=== PATIENT | female | born 1930 | race Caucasian/White ===

== ENCOUNTER 2018-05-21 05:00 | Day surgery (SDC) | payer OTHER, BC ==
[2018-05-20 15:46] VITALS: BMI 33.1
[2018-05-21 06:28] VITALS: TEMP 97.6
[2018-05-21] MEDS ORDERED: methylPREDNISolone ACET (DEPO) 80 MG/1 ML VIAL ONE (07:24)
[2018-05-21] MEDS ORDERED: BUPIVACAINE HCL/PF 0.25% (2.5MG/ML) 10 ML VIAL ONE (07:24)
[2018-05-21] MEDS ORDERED: SUCCINYLCHOLINE CHLORIDE 200 MG/10 ML VIAL ONE (07:45)
[2018-05-21] MEDS ORDERED: PROPOFOL 20 ML ONE (07:45)
[2018-05-21] MEDS ORDERED: LIDOCAINE HCL 1% PRESERVATIVE FREE - 30ML VIAL IJ ONE (07:55)
[2018-05-21] MEDS ORDERED: methylPREDNISolone ACET (DEPO) 80 MG/1 ML VIAL IJ ONE (07:55)
[2018-05-21] MEDS ORDERED: BUPIVACAINE HCL/PF 0.25% (2.5MG/ML) 10 ML VIAL IJ ONE (07:55)
--- NOTE | 2018-05-21 08:42 | OP ---
DATE OF OPERATION: 05/21/2018 PREOPERATIVE DIAGNOSIS: L5-S1 stenosis with back pain, lumbar radiculopathy. POSTOPERATIVE DIAGNOSIS: L5-S1 stenosis with back pain, lumbar radiculopathy. ATTENDING SURGEON: Venancio Benavides MD PROCEDURE: 1. Right L5-S1 epidural steroid injection. 2. Intraoperative fluoroscopy. ANESTHESIA: Local with IV sedation. ANESTHESIOLOGIST: Keri Rosa MD INDICATION: The patient is an 88-year-old female with intractable back pain, lumbar radiculopathy. Because of intractable symptoms and failure of conservative treatment, she is here for second epidural steroid injection. The risks of the procedure include but are not limited to bleeding, infection, spinal headache and neurological injury. The patient understands the indications for the procedure, the procedure in detail, risks and benefits and alternatives for treatment of her lumbar condition and wished to proceed. No guarantees were given for a favorable outcome. PROCEDURE IN DETAIL: After the patient was taken to the operating room, she was placed in a prone position with a pillow under her hips. The lumbar region was cleaned with alcohol and prepped with Betadine. Skin wheal was raised with 5 mL of 1% Xylocaine. A 22-gauge spinal needle was inserted under AP fluoroscopic guidance from a right-sided approach to L5-S1. The center of spinal canal was reached. Loss of resistance technique was utilized and there was no CSF or blood backflow. Depo-Medrol 80 mg and 1 mL of 0.25% Marcaine was injected. The needle was withdrawn and sterile bandage was applied. The patient tolerated the procedure well and was turned back to the supine position, moving bilateral lower extremities well. She did not complain of headache. VENANCIO BENAVIDES M.D. [id number]
[2018-05-21 10:42] VITALS: BP 146/70; PULSE 60
== END 2018-05-21 09:25 | disposition home or self-care (01) ==
LOC: JASU-SURG 05:00
PROVIDERS: ATTEND Neurological Surgery
PROC: 3E0R3BZ Introduction of Anesthetic Agent into Spinal Canal, Percutaneous Approach (ICD-10-PCS; 2018-05-21)
PROC: B01BZZZ Fluoroscopy of Spinal Cord (ICD-10-PCS; 2018-05-21)
PROC: 3E0R33Z Introduction of Anti-inflammatory into Spinal Canal, Percutaneous Approach (ICD-10-PCS; principal; 2018-05-21 07:30)
DX: M48.061 Spinal stenosis, lumbar region without neurogenic claudication (principal); M54.5 Low back pain; M54.16 Radiculopathy, lumbar region
CPT/HCPCS: 76000-TC-FY

== ENCOUNTER 2019-08-08 22:42 | Emergency (ER) | payer OTHER, BC ==
[2019-08-08 23:00] VITALS: BMI 28.3
--- NOTE | 2019-08-08 23:02 | PDOC ---
History of Present Illness - General History Source: Patient Exam Limitations: No Limitations - History of Present Illness Initial Comments: 08/08/19 23:01 Pauline Lam is an 89F with PMH HTN, HLD, [place] in 1998, CAD s/p stent in 2002 on ASA/Plavix, presenting with hypertension. Patient woke up this morning at 4AM and felt off, is not able to describe the sensation. Took her BP and found it to be elevated, went to the restroom and felt better. Went about her day, went to lunch, got her hair done, went to [employer], ate dinner. Went to bed at 8PM but was awakened by this same whole-body sensation, EMS called. BP in ambulance 220/110, did not give any medications. Patient denies chest pain, SOB, palpitations, BELLO, dizziness, changes to vision, weakness, LOC. Denies history of thyroid disease or renal disease. Has known history of [place] and CAD s/p stents, does not report that this presentation is similar to her prior ACS. One prior episode of this in the past, was seen by mechanical specialist Dr. Mendez and her medications were changed. Cardiac medications include Losartan 165mg, Troprol 100mg, ASA 81mg, Plavix 75. Has been taking medications regularly, denies high sodium diet. Normal BP 140/90. Denies fever, chills, nausea, vomiting, constipation, diarrhea. <Dain Belle - Last Filed: 08/09/19 00:29> <Isaiah Warner - Last Filed: 08/09/19 01:53> - General Chief Complaint: Blood Pressure Problem Stated Complaint: HIGH BLOOD PRESSURE, HYPERTENSION Time Seen by Provider: 08/08/19 23:01 Past History - Past Medical History Anemia: No Asthma: No Cancer: No Cardiac Disorders: Yes (IN, DOUBLE BYPASS, STENTS.) CVA: No COPD: No CHF: No Dementia: No Diabetes: No GI Disorders: Yes (REFLUX, DIVERTICULOSIS) Disorders: No HTN: Yes Hypercholesterolemia: Yes Liver Disease: No Seizures: No Thyroid Disease: No - Surgical History Abdominal Surgery: Yes Appendectomy: Yes Cardiac Surgery: Yes (bypass, stent x 2) Cholecystectomy: No Lung Surgery: No Neurologic Surgery: No Orthopedic Surgery: No - Psycho Social/Smoking Cessation Hx Smoking Status: No Smoking History: Never smoked Have you smoked in the past 12 months: No Number of Cigarettes Smoked Daily: 0 Information on smoking cessation initiated: No Hx Alcohol Use: No Drug/Substance Use Hx: No Substance Use Type: None Hx Substance Use Treatment: No <Dain Belle - Last Filed: 08/09/19 00:29> <Isaiah Warner - Last Filed: 08/09/19 01:53> - Past Medical History Allergies/Adverse Reactions: Allergies Allergy/AdvReac Type Severity Reaction Status Date / Time Penicillins Allergy Rash Verified 08/08/19 22:59 Home Medications: Ambulatory Orders Ezetimibe [Zetia] 10 mg PO HS 09/26/13 Aspirin [ASA -] 81 mg PO DAILY tab.chew 05/14/16 Atorvastatin Ca [Lipitor] 10 mg PO HS #0 tablet 05/14/16 Cholecalciferol (Vitamin D3) [Vitamin D3 -] 2,000 unit PO DAILY tab 05/14/16 Clopidogrel Bisulfate [Plavix -] 75 mg PO MoWeFr@1000 tablet 05/14/16 Metoprolol Succinate [Toprol XL -] 100 mg PO DAILY tab.sr.24h 05/14/16 Ranitidine [Zantac -] 150 mg PO BID tablet 05/14/16 Ranolazine [Ranexa -] 500 mg PO BID 09/10/16 Aspirin [Aspirin EC] 81 mg PO DAILY 05/20/18 Losartan Potassium 100 mg PO DAILY 05/20/18 Review of Systems - Review of Systems Able to Perform ROS?: Yes Constitutional: No: Symptoms Reported HEENTM: No: Eye Pain, Blurred Vision, Recent change in vision, Ear Pain, Throat Swelling, Mouth Swelling Respiratory: No: Cough, Shortness of Breath, Wheezing, Productive cough Cardiac (ROS): No: Chest Pain, Edema, Irregular Heart Rate, Lightheadedness, Palpitations, Syncope, Chest Tightness ABD/GI: No: Constipated, Diarrhea, Nausea, Vomiting : No: Symptoms Reported Musculoskeletal: No: Symptoms Reported Integumentary: No: Symptoms Reported Neurological: No: Headache, Numbness, Paresthesia, Tingling, Tremors, Weakness, Unsteady Gait, Ataxia, Dizziness Psychiatric: No: Stressors Endocrine: No: Intolerance to Cold, Intolerance to Heat Hematologic/Lymphatic: No: Symptoms Reported All Other Systems: Reviewed and Negative <Dain Belle - Last Filed: 08/09/19 00:29> *Physical Exam - Vital Signs Last Vital Signs Temp Pulse Resp BP Pulse Ox 97.6 F 76 20 196/99 H 98 08/08/19 22:59 08/08/19 22:59 08/08/19 22:59 08/08/19 22:59 08/08/19 22:59 - Physical Exam General Appearance: Yes: Nourished, Appropriately Dressed. No: Apparent Distress HEENT: positive: EOMI, JESUS, Normal Voice, Symmetrical, Pharynx Normal, Hearing Grossly Normal. negative: Scleral Icterus (R), Scleral Icterus (L) Neck: positive: Normal Thyroid, Rigid, Supple. negative: Tender, Lymphadenopathy (R), Lymphadenopathy (L) Respiratory/Chest: positive: Lungs Clear, Normal Breath Sounds. negative: Chest Tender, Respiratory Distress, Accessory Muscle Use, Crackles, Rhonchi, Stridor, Wheezing Cardiovascular: positive: Regular Rhythm, Regular Rate, Edema. negative: Murmur Gastrointestinal/Abdominal: positive: Normal Bowel Sounds, Flat, Soft. negative : Tender, Hernia Musculoskeletal: positive: Normal Inspection. negative: CVA Tenderness Extremity: positive: Normal Capillary Refill, Normal Inspection, Normal Range of Motion. 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 director II-XII NML intact, Fully Oriented, Alert, Normal Mood/ Affect, Normal Response <Dain Belle - Last Filed: 08/09/19 00:29> - Vital Signs Last Vital Signs Temp Pulse Resp BP Pulse Ox 97.5 F L 72 17 158/77 97 08/08/19 23:25 08/08/19 23:25 08/08/19 23:10 08/08/19 23:25 08/08/19 23:25 <Isaiah Warner - Last Filed: 08/09/19 01:53> ED Treatment Course - LABORATORY CBC & Chemistry Diagram: 08/09/19 00:45 08/09/19 00:45 - ADDITIONAL ORDERS Additional order review: Laboratory Results 08/09/19 00:45 Sodium 138 Potassium 4.5 Chloride 107 Carbon Dioxide 25 Anion Gap 6 L BUN 24.7 H Creatinine 1.0 Est GFR (CKD-EPI)AfAm 58.66 Est GFR (CKD-EPI)NonAf 50.61 Random Glucose 94 Calcium 9.3 Total Bilirubin 0.6 AST 23 ALT 32 Alkaline Phosphatase 67 Creatine Kinase 135 Troponin I < 0.02 Total Protein 7.2 Albumin 4.0 08/09/19 00:45 RBC 4.15 MCV 96.4 H MCHC 33.4 RDW 13.7 MPV 7.3 L Neutrophils % 62.7 Lymphocytes % 25.0 Monocytes % 9.6 Eosinophils % 2.2 Basophils % 0.5 <Isaiah Warner - Last Filed: 08/09/19 01:53> Medical Decision Making - Medical Decision Making 08/08/19 23:01 Pauline Lam is an 89F with PMH HTN, HLD, [place] in 1998, CAD s/p stent in 2002 on ASA/Plavix, presenting with hypertension. Patient presents with hypertension above her normal, with an unusual sensation she cannot quantify, but denies chest pain, SOB, BELLO, palpitations, or other common cardiac complaints. Patient is A/O x3, no concerning findings for CVA. Left arm BP 182/92, right arm BP 179/141, no chest pain, concern for aortic dissection low. Concerned for hypertensive urgency, will evaluate for end-organ damage including IN via: CMP CBC CP ECG CXR BP down to 158/77 without intervention. No need for medications at this time. Will continue to re-assess BP. Signed out to Dr. Alexis. [] Labs [] CXR [X] ECG ECG shows NSR with sinus arrhythmia, HR 70, QTc 425, no ischemic changes or TWI. <Dain Belle - Last Filed: 08/09/19 00:29> Discharge - Discharge Information Problems reviewed: Yes <Dain Belle - Last Filed: 08/09/19 00:29> - Discharge Information Problems reviewed: Yes <Isaiah Warner - Last Filed: 08/09/19 01:53> - Discharge Information Clinical Impression/Diagnosis: Hypertensive urgency Condition: Stable Disposition: HOME - Follow up/Referral Referrals: Eb Olson [Primary Care Provider] - Elvis Alston MD [Staff Physician] - - Patient Discharge Instructions Patient Printed Discharge Instructions: DI for High Blood Pressure Additional Instructions: Today you were evaluated for high blood pressure. Although your pressure went down on its own and you did not have any concrete symptoms, we were concerned about damage to your kidneys or heart. Your blood labs show: Your chest x-ray shows: Your ECG does not show signs of a heart attack. Please continue to keep a log of your blood pressure. If it continues to be elevated over 180 for a few days, your current medications are not enough to control it, and you need to see Dr. Mendez your mechanical specialist for a change to your medications. Please see your primary doctor in the next 3 days, and your mechanical specialist in the next week for further care. If you experience headache, nausea, vomiting, chest pain, shortness of breath, abdominal pain, or any other new or concerning symptoms, please return to the emergency room.
--- NOTE | 2019-08-09 00:01 | PDOC ---
*Physical Exam - Vital Signs Last Vital Signs Temp Pulse Resp BP Pulse Ox 97.5 F L 72 20 158/77 97 08/08/19 23:25 08/08/19 23:25 08/08/19 22:59 08/08/19 23:25 08/08/19 23:25 ED Treatment Course - LABORATORY CBC & Chemistry Diagram: 08/09/19 00:45 08/09/19 00:45 Medical Decision Making - Medical Decision Making 08/09/19 00:01 sign out rcvd by noon team - labs, cxr, ekg, dispo DC'd home per ED attending Discharge - Discharge Information Problems reviewed: Yes Clinical Impression/Diagnosis: Hypertensive urgency Condition: Stable Disposition: HOME - Follow up/Referral Referrals: Eb Olson [Primary Care Provider] - Elvis Alston MD [Staff Physician] - - Patient Discharge Instructions Patient Printed Discharge Instructions: DI for High Blood Pressure Additional Instructions: Today you were evaluated for high blood pressure. Although your pressure went down on its own and you did not have any concrete symptoms, we were concerned about damage to your kidneys or heart. Your blood labs show: Your chest x-ray shows: Your ECG does not show signs of a heart attack. Please continue to keep a log of your blood pressure. If it continues to be elevated over 180 for a few days, your current medications are not enough to control it, and you need to see Dr. Mendez your hydraulic modeling engineer for a change to your medications. Please see your primary doctor in the next 3 days, and your hydraulic modeling engineer in the next week for further care. If you experience headache, nausea, vomiting, chest pain, shortness of breath, abdominal pain, or any other new or concerning symptoms, please return to the emergency room. - Post Discharge Activity
[2019-08-09 00:55] LABS: BASO % 0.5 % (0-2.0); EOS % 2.2 % (0-4.5); HEMOGLOBIN 13.3 GM/dL (10.7-15.3); MCH 32.2 pg (25.7-33.7); MCHC 33.4 g/dl (32.0-36.0); MEAN CELL VOLUME 96.4 fl (80-96); MEAN PLT VOLUME 7.3 fl (7.5-11.1); MONO % 9.6 % (3.8-10.2); NEUT % 62.7 % (42.8-82.8); PLATELET COUNT 241 K/MM3 (134-434); RBC 4.15 M/mm3 (3.60-5.2); RDW 13.7 % (11.6-15.6); WHITE BLOOD COUNT 10.5 K/mm3 (4.0-10.0)
--- NOTE | 2019-08-09 01:37 | PDOC ---
Documentation entered by Thania Ricci SCRIBE, acting as scribe for Isaiah Warner MD. Isaiah Warner MD: This documentation has been prepared by the noraibeRadhames Lincy, SCRIBE, under my direction and personally reviewed by me in its entirety. I confirm that the documentation accurately reflects all work, treatment, procedures, and medical decision making performed by me. Attending Attestation - Resident Resident Name: Dain Belle - ED Attending Attestation I have performed the following: I have examined & evaluated the patient, The case was reviewed & discussed with the resident, I agree w/resident's findings & plan, Exceptions are as noted - HPI HPI: 08/08/19 23:59 The patient is an 89-year-old female with a past medical history significant HTN , HLD, [place] (1998), CAD s/p 2 stents (on Plavix and ASA) who presents to the emergency department with an elevated blood pressure of 220/110 since 8:00 pm today. The patient states she woke up around 8:00 pm feeling off. The patient states she called EMS, who checked the patients BP, which was recorded to be elevated. Denies chest pain or shortness of breath. - Physicial Exam PE: 08/09/19 01:35 Patient is awake and alert, well-nourished, in no distress Normocephalic and atraumatic PERRLA, EOMI No JVD CTA RRR Abdomen soft, nontender, nondistended No lower extremity edema No focal neuro deficits - Medical Decision Making 08/09/19 01:35 89-year-old female with history of hypertension presents with signs and symptoms of hypertensive urgency with improving blood pressure without intervention. In the ER, patient is well-appearing without evidence of acute ischemia or focal neuro deficits. EKG reveals LVH but no evidence of acute ischemia or dysrhythmia. CBC is within normal limits. Cardiac enzymes are unremarkable. Chest x-ray reveals no evidence of cardiomegaly/infiltrate or effusion. Will obtain CMP to evaluate for renal dysfunction. If no abnormalities are identified, will discharge with outpatient cardiology follow- up. 08/09/19 01:52 Patient reassessed. Patient is asymptomatic with improving blood pressure without intervention. Last blood pressure is noted to be 127/78. I have advised the patient to continue to maintain a blood pressure log and follow-up with her ingot supervisor in 24 to 48 hours. I have advised the patient to return immediately if she develops chest pain or focal deficits. She is expressed understanding. Will discharge.
[2019-08-09 01:42] LABS: ALK PHOS 67 U/L (45-117); ANION GAP 6 MMOL/L (8-16); BILIRUBIN,TOTAL 0.6 mg/dL (0.2-1); BLOOD UREA NITROGEN 24.7 mg/dL (7-18); CALCIUM 9.3 mg/dL (8.5-10.1); CHLORIDE 107 mmol/L (98-107); CO2 25 mmol/L (21-32); GLUCOSE,RANDOM 94 mg/dL (74-106); POTASSIUM 4.5 mmol/L (3.5-5.1); SGOT/AST 23 U/L (15-37); SGPT/ALT 32 U/L (13-61); SODIUM 138 mmol/L (136-145); TOT PROT 7.2 g/dl (6.4-8.2)
[2019-08-09 02:16] VITALS: BP 158/87; PULSE 78; TEMP 97.9
--- NOTE | 2019-08-09 10:51 | EKG ---
Test Reason : Blood Pressure : / mmHG Vent. Rate : 070 BPM Atrial Rate : 070 BPM P-R Int : 192 ms QRS Dur : 088 ms QT Int : 394 ms P-R-T Axes : 099 -15 -07 degrees QTc Int : 425 ms NORMAL SINUS RHYTHM WITH SINUS ARRHYTHMIA MINIMAL VOLTAGE CRITERIA FOR LVH, MAY BE NORMAL VARIANT INFERIOR INFARCT (CITED ON OR BEFORE 10-JUN-2003) POSSIBLE ANTERIOR INFARCT (CITED ON OR BEFORE 10-JUN-2003) ABNORMAL ECG WHEN COMPARED WITH ECG OF 11-MAY-2016 16:40, NO SIGNIFICANT CHANGE WAS FOUND Confirmed by MELISSA PERALTA MD ([id number]) on 08/09/2019 10:50:36 AM Referred By: Confirmed By:MELISSA PERALTA MD
== END 2019-08-09 02:14 | disposition home or self-care (01) ==
LOC: JER 22:42
DX: I16.0 Hypertensive urgency (principal); I25.10 Atherosclerotic heart disease of native coronary artery without angina pectoris; I10 Essential (primary) hypertension; Z95.1 Presence of aortocoronary bypass graft; Z95.5 Presence of coronary angioplasty implant and graft; I25.2 Old myocardial infarction; E78.00 Pure hypercholesterolemia, unspecified; E78.5 Hyperlipidemia, unspecified; K21.9 Gastro-esophageal reflux disease without esophagitis; K57.90 Diverticulosis of intestine, part unspecified, without perforation or abscess without bleeding; Z79.82 Long term (current) use of aspirin; Z79.02 Long term (current) use of antithrombotics/antiplatelets; Z88.0 Allergy status to penicillin
CPT/HCPCS: 36415; 71046-TC-FY; 80053; 82550; 84484; 85025; 93005; 93010; 99282-25

== ENCOUNTER 2021-08-16 23:50 | Emergency (ER) | payer OTHER, BC ==
[2021-08-16 23:57] VITALS: BP 196/75; PULSE 75; TEMP 97; BMI 25.7
[2021-08-17 00:33] LABS: BASO % 0.7 % (0-2.0); EOS % 2.3 % (0-4.5); HEMATOCRIT 37.3 % (32.4-45.2); HEMOGLOBIN 12.5 GM/dL (10.7-15.3); LYMPH % 18.7 % (8-40); MCH 31.9 pg (25.7-33.7); MCHC 33.6 g/dl (32.0-36.0); MEAN CELL VOLUME 95.2 fl (80-96); MONO % 7.2 % (3.8-10.2); NEUT % 71.1 % (42.8-82.8); PLATELET COUNT 232 10^3/uL (134-434); RBC 3.91 M/mm3 (3.60-5.2); RDW 13.3 % (11.6-15.6); WHITE BLOOD COUNT 12.4 K/mm3 (4.0-10.0)
[2021-08-17 00:51] LABS: CHLORIDE 108 mmol/L (98-107); SODIUM 139 mmol/L (136-145)
[2021-08-17 00:53] LABS: CALCIUM 8.9 mg/dL (8.5-10.1)
[2021-08-17 00:54] LABS: ALBUMIN 3.7 g/dl (3.4-5.0); ANION GAP 8 MMOL/L (8-16); BLOOD UREA NITROGEN 44.3 mg/dL (7-18); CO2 23 mmol/L (21-32); GLUCOSE,RANDOM 116 mg/dL (74-106)
[2021-08-17 00:57] LABS: CREATININE 1.9 mg/dL (0.55-1.3); SGOT/AST 22 U/L (15-37); SGPT/ALT 33 U/L (13-61)
[2021-08-17 00:59] LABS: BILIRUBIN,TOTAL 0.5 mg/dL (0.2-1)
[2021-08-17 01:00] LABS: ALK PHOS 74 U/L (45-117)
== END 2021-08-17 01:58 | disposition home or self-care (01) ==
LOC: JER 23:50
DX: I10 Essential (primary) hypertension (principal)
CPT/HCPCS: 36415; 80053; 82550; 84484; 85025; 93005; 93010; 99284-25